=== PATIENT | male | born 1950 | race Caucasian/White ===

== ENCOUNTER → 2018-08-30 | Outpatient (CLI) | payer MEDICARE, BC | LOC: COL.RAD 09:40 | DX: C61 Malignant neoplasm of prostate (principal); C79.51 Secondary malignant neoplasm of bone | CPT/HCPCS: A9503 ==

== ENCOUNTER → 2018-09-01 | Outpatient (CLI) | payer MEDICARE, BC | LOC: COL.RAD 07:20 | DX: C61 Malignant neoplasm of prostate (principal); C79.51 Secondary malignant neoplasm of bone; K57.30 Diverticulosis of large intestine without perforation or abscess without bleeding; K76.9 Liver disease, unspecified | CPT/HCPCS: Q9967 ==

== ENCOUNTER → 2019-02-17 | Outpatient (CLI) | payer MEDICARE, BC | LOC: COL.RAD 09:13 | DX: C61 Malignant neoplasm of prostate (principal); C79.51 Secondary malignant neoplasm of bone; K76.0 Fatty (change of) liver, not elsewhere classified; S22.41XD Multiple fractures of ribs, right side, subsequent encounter for fracture with routine healing | CPT/HCPCS: A9503; Q9967 ==

== ENCOUNTER → 2019-08-23 | Outpatient (CLI) | payer MEDICARE, BC | LOC: COL.RAD 08:32 | DX: Z01.812 Encounter for preprocedural laboratory examination (principal); C79.51 Secondary malignant neoplasm of bone; C61 Malignant neoplasm of prostate | CPT/HCPCS: A9503; Q9967 ==

== ENCOUNTER → 2020-05-06 | Outpatient (CLI) | payer MEDICARE, BC | LOC: COL.RAD 08:39 | DX: C61 Malignant neoplasm of prostate (principal) | CPT/HCPCS: A9503; Q9967 ==

== ENCOUNTER → 2020-10-23 | Outpatient (CLI) | payer MEDICARE, BC | LOC: COL.RAD 09:17 | DX: C61 Malignant neoplasm of prostate (principal) | CPT/HCPCS: A9503; Q9967 ==

== ENCOUNTER → 2021-06-23 | Outpatient (CLI) | payer MEDICARE, BC | LOC: COL.RAD 08:43 | DX: C61 Malignant neoplasm of prostate (principal); C79.51 Secondary malignant neoplasm of bone; K57.92 Diverticulitis of intestine, part unspecified, without perforation or abscess without bleeding; R16.1 Splenomegaly, not elsewhere classified | CPT/HCPCS: A9503; Q9967 ==

== ENCOUNTER → 2022-08-26 | Outpatient (CLI) | payer MEDICARE, BC | LOC: COL.RAD 07:03 | DX: C61 Malignant neoplasm of prostate (principal) | CPT/HCPCS: A9503; Q9967 ==